=== PATIENT | male | born 1985 | race Caucasian/White ===

== ENCOUNTER 2017-11-10 10:15 | Day surgery (SDC) | payer BC ==
[~2017-11-10 10:15] MED LIST: EPINEPHrine 1 MG/ML SDV ONE; Lidocaine 2% 5 ML SDV ONE; Lidocaine 2% with EPINEPHrine 1:100,000 20 ML MDV ONE; Oxymetazoline 0.05% Nasal Spray 15 ML Bottle ONE
--- NOTE | 2017-11-10 11:03 | PCM.PREANE ---
Preanesthetic Assessment - Anesthesia/Transfusion/Family Hx Anesthesia History: Prior Anesthesia Without Reaction Family History of Anesthesia Reaction: No Transfusion History: No Prior Transfusion(s) - Review of Systems General: No Symptoms Pulmonary: No Symptoms Cardiovascular: No Symptoms Gastrointestinal: No Symptoms Neurological: No Symptoms Other: Reports: None - Physical Assessment NPO Status Date: 11/09/17 O2 Sat by Pulse Oximetry: 96 Respiratory Rate: 16 Vital Signs: Last Vital Signs Temp 36.4 C 11/10/17 10:34 Pulse 80 11/10/17 10:34 Resp 16 11/10/17 10:34 BP 126/81 11/10/17 10:34 Pulse Ox 96 11/10/17 10:34 Height: 1.83 m Weight: 118.388 kg ASA Class: 1 Mental Status: Alert & Oriented x3 Airway Class: Mallampati = 1 Dentition: Reports: Broken Tooth/Teeth ROM/Head Extension: Full Lungs: Clear to Auscultation, Normal Respiratory Effort Cardiovascular: Regular Rate, Regular Rhythm - Allergies Allergies/Adverse Reactions: Allergies Allergy/AdvReac Type Severity Reaction Status Date / Time No Known Allergies Allergy Verified 11/08/17 10:56 - Anesthesia Plan Pre-Op Medication Ordered: None - Acknowledgements Anesthesia Type Planned: General Anesthesia Pt an Appropriate Candidate for the Planned Anesthesia: Yes Alternatives and Risks of Anesthesia Discussed w Pt/Guardian: Yes Pt/Guardian Understands and Agrees with Anesthesia Plan: Yes PreAnesthesia Questionnaire HEENT History: Reports: Hard of Hearing Gastrointestinal History: Reports: GERD Musculoskeletal History: Reports: Fracture Other Musculoskeletal History: hx of fx arm and clavicle (no hardware) Endocrine/Metabolic History: Reports: Obesity/BMI 30+ - SUBSTANCE USE Smoking Status *Q: Current Every Day Smoker Tobacco Use Within Last Twelve Months: Cigarettes Recreational Drug Use History: No - HOME MEDS Home Medications: Home Meds . [No Known Home Meds] 11/08/17 [History] - CURRENT (IN HOUSE) MEDS Current Meds: Current Medications Discontinued Medications Epinephrine HCl (Adrenalin) Confirm Administered Dose 1 mg .ROUTE .STK-MED ONE Stop: 11/10/17 09:03 Lidocaine (Xylocaine-Mpf 2%) Confirm Administered Dose 5 ml .ROUTE .STK-MED ONE Stop: 11/10/17 09:03 Lidocaine/Epinephrine (Xylocaine 2% With Epinephrine 1:100,000) Confirm Administered Dose 20 ml .ROUTE .STK-MED ONE Stop: 11/10/17 09:03 Oxymetazoline HCl (Afrin Original 0.05% Nasal [place]) Confirm Administered Dose 30 ml .ROUTE .STK-MED ONE Stop: 11/10/17 09:03
[2017-11-10] MEDS ORDERED: Propofol 200 MG/20 ML SDV ONE ×3 (12:33→14:14)
[2017-11-10] MEDS ORDERED: fentaNYL 250 MCG/5 ML SDV ONE (12:38)
[2017-11-10] MEDS ORDERED: Midazolam 1 MG/ML 2 ML SDV ONE (12:39)
[2017-11-10] MEDS ORDERED: Sugammadex Sodium 200 MG/2 ML VIAL ONE (13:32)
--- NOTE | 2017-11-10 13:41 | PCM.HPR ---
H & P Addendum review - H & P Addendum Review Date of Original H & P: 11/02/17 Date Reviewed: 11/10/17 Time Reviewed: 13:40 Patient was Examined: No Changes
[2017-11-10] MEDS ORDERED: HYDROmorphone 2 MG/ML SDV ONE (14:08)
[2017-11-10] MEDS ORDERED: fentaNYL 100 MCG/2 ML SDV ONE (14:22)
[2017-11-10] MEDS ORDERED: Labetalol 100 MG/20 ML MDV ONE (14:33)
[2017-11-10] MEDS ORDERED: Ondansetron 4 MG/2 ML SDV ONE (15:16)
[2017-11-10] MEDS ORDERED: EPINEPHrine 1 MG/ML SDV ONE (15:24)
[2017-11-10] MEDS ORDERED: fentaNYL 100 MCG/2 ML SDV IVPUSH PRN (15:27)
--- NOTE | 2017-11-10 15:42 | PCM.OPNOTE ---
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 Anesthesia was administered with an endotracheal tube. Part was prepped and draped in the standard sterile fashion. Eyes were left exposed - lubricating ointment was placed in the eyes. Left nasal cavity was packed with the Afrin-soaked cottonoids. After appropriate period of decongestion the cottonoids were removed. A 0 endoscope was introduced into the left nasal cavity and left nasal mass was seen - please see findings above for details. 2% lidocaine with 100,000 epinephrine was injected in the axilla of the left middle turbinate 1.5 mls were used. Cottonoids soaked in 1 in 10,000 epinephrine was placed in the left middle meatus and draping the left middle turbinate. After appropriate period of decongestion the cottonoid pledgets were removed. Blagideonley Deedee forceps was used to obtain biopsy from nasal mass. A large majority of the mass was also removed with the Blakesley-Deedee forceps protruding through the accessory ostium. The uncinate process was medialized with a ball probe. A right sided pediatric backbiter was used and the inferior one third of uncinate process was removed. Microdebrider was used at a setting of 5000 RPM and the inferior vertical aspect of the uncinate process was removed as was the horizontal attachment. The natural maxillary ostium was enlarged posteriorly with through cut forceps and combined with accessory ostium. A 30 endoscope was then used to visualize the interior aspect of the left maxillary sinus and using Alfredo Siddiqui forceps the remainder- antral part of the polyp was also removed. The left maxillary sinus was thoroughly irrigated with warm saline. Photodocumentation was obtained before and after the procedure. MeroGel was injected into the left middle meatus after ensuring hemostasis. This concluded the procedure and patient was handed over to anesthesia for recovery. Disposition: To PACU for recovery Follow-up: In 1 week
--- NOTE | 2017-11-10 15:59 | PCM.POSTAN ---
POST ANESTHESIA ASSESSMENT - MENTAL STATUS Mental Status: Alert, Oriented - VITAL SIGNS Pulse Rate: 88 SaO2: 96 Resp Rate: 14 Blood Pressure: 126/81 - RESPIRATORY Respiratory Status: Respiratory Rate WNL, Airway Patent, O2 Saturation Stable - CARDIOVASCULAR CV Status: Pulse Rate WNL, Blood Pressure Stable - GASTROINTESTINAL GI Status: No Symptoms - PAIN Pain Score: 0 - POST OP HYDRATION Hydration Status: Adequate & Stable
--- NOTE | 2017-11-10 16:29 | PCM48HPAN ---
Post Anesthesia Note - EVALUATION WITHIN 48HRS OF ANESTHETIC Vital Signs in Normal Range: Yes Patient Participated in Evaluation: Yes Respiratory Function Stable: Yes Airway Patent: Yes Cardiovascular Function Stable: Yes Hydration Status Stable: Yes Pain Control Satisfactory: Yes Nausea and Vomiting Control Satisfactory: Yes Mental Status Recovered: Yes Pulse Rate: 88 Resp Rate: 14 Blood Pressure: 126/81
== END 2017-11-10 17:14 | disposition home or self-care (01) ==
LOC: MW.SDS 10:15
PROVIDERS: ATTEND Otolaryngology
DX: J33.0 Polyp of nasal cavity (principal); F17.210 Nicotine dependence, cigarettes, uncomplicated; K21.9 Gastro-esophageal reflux disease without esophagitis; E66.9 Obesity, unspecified; Z68.35 Body mass index [BMI] 35.0-35.9, adult
CPT/HCPCS: 87070; 87075; 87205; 88304; A9270-GY; J0171; J1170; J2250; J2405; J2704; J3010; J3490

== ENCOUNTER 2022-06-19 09:30 | Emergency (ER) | payer BC ==
[2022-06-19] MEDS ORDERED: Dexamethasone 10 MG/ML SDV PO ONE (10:09)
[2022-06-19 11:00] LABS: CORONAVIRUS COVID-19 NAA NEGATIVE (NEGATIVE); INFLUENZA A NAA NEGATIVE (NEGATIVE); INFLUENZA B NAA NEGATIVE (NEGATIVE); RESPIRATORY SYNCYTIAL VIR NAA NEGATIVE (NEGATIVE)
== END 2022-06-19 10:25 | disposition home or self-care (01) ==
LOC: MW.ED 09:30
DX: J02.9 Acute pharyngitis, unspecified (principal); E66.9 Obesity, unspecified; Z68.33 Body mass index [BMI] 33.0-33.9, adult; Z20.822 Contact with and (suspected) exposure to COVID-19
CPT/HCPCS: 0241U; 99283; J8540